=== PATIENT | male | born 1955 | race Two or more races ===

== ENCOUNTER 2017-04-17 12:22 | Outpatient (CLI) | payer OTHER ==
[~2017-04-17 12:22] MED LIST: PERCOCET 5-3251 EACH PO; VITAMIN D350000 UNIT PO; ZESTRIL20 MG PO
== END 2017-04-17 12:27 | disposition home or self-care (01) ==
LOC: RAD 501 12:22
DX: N20.0 Calculus of kidney (principal)

== ENCOUNTER 2019-12-14 08:35 | Outpatient (CLI) | payer OTHER | END 2019-12-14 08:39 | disposition home or self-care (01) | LOC: NUCLEAR 08:35 | PROVIDERS: ATTEND Internal Medicine | DX: I10 Essential (primary) hypertension (principal) ==

== ENCOUNTER 2023-01-29 08:07 | Outpatient (CLI) | payer OTHER | END 2023-01-29 08:25 | disposition home or self-care (01) | LOC: NUCLEAR 08:07 | PROVIDERS: ATTEND Internal Medicine Cardiovascular Disease | DX: I73.9 Peripheral vascular disease, unspecified (principal) ==